=== PATIENT | female | born 1980 | race Caucasian/White ===

== ENCOUNTER → 2023-07-04 | Emergency (ER) | payer OTHER ==
[~2023-07-04] VITALS: Ht 160 cm; Wt 61.2 kg
[~2023-07-04] MED LIST: METH-647 PO
[2023-07-04 19:08] VITALS: BP 122/85; TEMP 98.3; O2SAT 100
== END | disposition home or self-care (01) ==
LOC: ER 16:08
DX: S13.8XXA Sprain of joints and ligaments of other parts of neck, initial encounter (principal); S63.591A Other specified sprain of right wrist, initial encounter; Z60.2 Problems related to living alone; Z88.2 Allergy status to sulfonamides; W01.0XXA Fall on same level from slipping, tripping and stumbling without subsequent striking against object, initial encounter; Y93.89 Activity, other specified; Y92.89 Other specified places as the place of occurrence of the external cause; Y99.8 Other external cause status
CPT/HCPCS: 72125-TC; 73110